=== PATIENT | female | born 1980 | race Caucasian/White ===

== ENCOUNTER 2024-03-05 10:50 | Emergency (ER) | payer OTHER, SELFPAY ==
[2024-03-05 11:14] VITALS: BP 123/76; PULSE 94; RESP 16; TEMP 35.9; O2SAT 99; BMI 21.7
--- NOTE | 2024-03-05 13:41 | ED.GENADULT ---
HPI - General Adult General Chief complaint: Urogenital-Female Stated complaint: per pt poss uti and kidney pain Time Seen by Provider: 03/05/24 13:41 Source: patient Mode of arrival: Ambulatory History of Present Illness HPI narrative: 43-year-old woman with a history of genital herpes and recent of her father with significant grief reaction and family stressors. She comes in today complaining of possible kidney infection because she is having some mild dysuria and some back pain. On further questioning she notes she is just getting over a herpes outbreak which could well explain the mild dysuria and she also notes that when she does get stressed typically she does store her stress in her low back which is her area of concern. She has not currently having fevers. He has not currently suicidal. She notes that she is going to grief counseling tomorrow. No recent nausea, vomiting, diarrhea, no chest pain or dyspnea Related Data Previous Rx's Medication Instructions Recorded clonazepam 1 mg tablet 1 mg PO BID #14 tabs 03/05/24 valacyclovir 500 mg tablet 500 mg PO BID #6 tabs 03/05/24 Allergies Allergy/AdvReac Type Severity Reaction Status Date / Time Penicillins Allergy Hives Verified 03/05/24 11:17 Sulfa (Sulfonamide Allergy Hives Verified 03/05/24 11:17 Antibiotics) Review of Systems Review of Systems Narrative: Pertinent positive and negative findings as per HPI Patient History Medical History (Updated 03/05/24 @ 14:06 by Capri Nava MD) HSV infection Social History Smoking Status: Current every day smoker Smoking Status: Current every day smoker Substance Use Type: former substance user Exam Initial Vital Signs Initial Vital Signs: Vital Signs Temperature 96.7 F L 03/05/24 11:14 Pulse Rate 94 H 03/05/24 11:14 Respiratory Rate 16 03/05/24 11:14 Blood Pressure 123/76 03/05/24 11:14 Pulse Oximetry 99 03/05/24 11:14 Oxygen Delivery Method Room Air 03/05/24 11:14 General: Alert . Patient is in emotional distress, and as our interview and exam continues she begins crying quite a bit more. Respiratory: Able to speak in full sentences, no obvious respiratory distress Low back: She is complaining of central back tenderness there is no abrasions, contusions, skin abnormalities or point tenderness. She does not have flank pain Skin: No obvious rashes, warm and dry Neurologic: Grossly intact no obvious asymmetries or abnormalities Psych: appropriate insight and affect for situation, cooperative Course Vital Signs Vital signs: Vital Signs - 8 hr 03/05/24 11:14 Temperature 96.7 F L Pulse Rate 94 H Respiratory Rate 16 Blood Pressure 123/76 Pulse Oximetry 99 Oxygen Delivery Method Room Air Medical Decision Making Lab Data Labs: Point of Care Testing Test Results Negative Urine Dip Bedside Urine Glucose Negative Bedside Urine Bilirubin - Negative Bedside Urine Ketone - Negative Urine Specific Ava 1.025 Bedside Urine Occult Blood - Negative Bedside Urine pH 6.0 Bedside Urine Protein - Negative Bedside Urine Urobilinogen - Negative Bedside Urine Nitrite - Negative Bedside Urine Leukocytes - Negative Esterase Point of care testing: Point of Care Testing Test Results Negative Urine Dip Bedside Urine Glucose Negative Bedside Urine Bilirubin - Negative Bedside Urine Ketone - Negative Urine Specific Ava 1.025 Bedside Urine Occult Blood - Negative Bedside Urine pH 6.0 Bedside Urine Protein - Negative Bedside Urine Urobilinogen - Negative Bedside Urine Nitrite - Negative Bedside Urine Leukocytes - Negative Esterase MDM Narrative Medical decision making narrative: CC: Dysuria with back pain Complicating co-morbidities: Genital herpes, recent loss of her father Data collected from: patient Social determinants of health that may influence the patients condition: Visiting [facility] from [place]. Father recently , significant family psychosocial events Differential considered: Urinary tract infection, pelvic inflammatory disease, pyelonephritis, genital herpes, low back pain Exam documented above, pertinent findings include: Patient is emotionally distraught but can be redirected in his otherwise completely appropriate. No active genital lesions. Her back pain is musculoskeletal centrally over her low back without point tenderness. She has no flank pain. Lab Test results independently reviewed as above. Pertinent findings: Urine dip is unremarkable Treatments: 5 mg of diazepam Discussion: 43-year-old woman with dysuria secondary to resolving HSV outbreak. She was given a prescription for Valacyclovir and refills to have available. With her acute situational disturbance/grief reaction dealing with her family in the loss of her father I have given her a prescription for clonazepam for short-term use. She has not appointment to talk with a grief counselor tomorrow. When we talked about psychosomatic pain she did recognize that she frequently has similar back pain with increasing stressors. She has not suicidal at this time she does have family support. Questions are answered and she is safe for discharge Discharge Plan Departure Patient Disposition: Home Clinical Impression: Grief reaction Genital HSV Qualifiers: Herpes simplex infection site: vulvovaginitis Qualified Code(s): A60.04 - Herpesviral vulvovaginitis Low back pain Qualifiers: Chronicity: acute Back pain laterality: bilateral Sciatica presence: without sciatica Qualified Code(s): M54.50 - Low back pain, unspecified Instructions: DI for Genital Herpes, Coping with Grief Activity Restrictions/Additional Instructions: Thank you for coming in today It is amazing how much outside events can affect are physical well-being. I suspect that the minor amount of stinging with urination that your feeling is the healing herpes infection. Your urine today actually looks very normal there has no signs of bacterial infection. I have given you a prescription for Valacyclovir to take now and to refill and have available for recurrent infections. The early start it as soon as you feel that burning stinging sensation the more effective it is I understand that the loss of your father and all of the family dynamics surrounding that can be very challenging. I am very glad that you have not had a returned to drinking. I am going to give you a brief prescription for clonazepam. This is an antianxiety medication. It lasts a bit longer and does not take effect quite as immediately as Xanax but the 2 medications are very similar. If you do find that it makes you feel a bit sleepy you can have a cup of coffee simultaneously. You may also find that it helps with muscle relaxation and your back does not bother you quite so much. With your low back pain, I suspect that it is as much emotional stressors as physical discomfort. Using 400 mg of ibuprofen (2 [id number] pills) and 1 Tylenol every 6 hours can be very helpful in controlling pain. Please make sure you do go to the grief counseling session tomorrow If you find that things are worsening or have new complaints please return to the ER. I wish you the best Prescriptions: New clonazepam 1 mg tablet 1 mg PO BID Qty: 14 0RF valacyclovir 500 mg tablet 500 mg PO BID Qty: 6 6RF Stand Alone Forms: Patient Portal/API
[2024-03-05] MEDS: diazePAM 5 MG TABLET PO (14:10)
[2024-03-05 14:20] VITALS: BP 134/85; PULSE 93; RESP 22; O2SAT 100
== END 2024-03-05 14:24 | disposition home or self-care (01) ==
PROVIDERS: Emergency Provider Emergency Medicine
DX: A60.04 Herpesviral vulvovaginitis (principal); M54.50 Low back pain, unspecified; F43.20 Adjustment disorder, unspecified
CPT/HCPCS: 81003; 81025; 99283